=== PATIENT | female | born 1945 | race Caucasian/White ===

== ENCOUNTER 2024-01-15 12:13 | Outpatient (CLI) | payer MEDICARE, MEDICAID | END 2024-01-15 23:59 | disposition home or self-care (01) | LOC: CARD DIAG 12:13 | PROVIDERS: ATTEND Family Medicine | DX: I08.0 Rheumatic disorders of both mitral and aortic valves (principal); R01.1 Cardiac murmur, unspecified | CPT/HCPCS: 93306 ==

== ENCOUNTER 2024-08-02 09:24 | Outpatient (CLI) | payer MEDICARE, MEDICAID | END 2024-08-02 23:59 | disposition home or self-care (01) | LOC: CARD DIAG 09:24 | PROVIDERS: ATTEND Student in an Organized Health Care Education/Training Program | DX: I08.3 Combined rheumatic disorders of mitral, aortic and tricuspid valves (principal); I71.9 Aortic aneurysm of unspecified site, without rupture | CPT/HCPCS: 93306; 93978 ==